=== PATIENT | female | born 1945 | race Caucasian/White ===

== ENCOUNTER → 2018-01-22 | Outpatient (CLI) | payer BC, MEDICARE | LOC: M.RAD 01-16 16:02 | DX: Z12.31 Encounter for screening mammogram for malignant neoplasm of breast (principal); G45.9 Transient cerebral ischemic attack, unspecified; N91.2 Amenorrhea, unspecified; R42 Dizziness and giddiness; Z78.0 Asymptomatic menopausal state ==

== ENCOUNTER → 2020-07-27 | Outpatient (CLI) | payer OTHER | LOC: M.RAD 07-21 12:37 | PROVIDERS: ATTEND Nurse Practitioner Family | DX: Z12.31 Encounter for screening mammogram for malignant neoplasm of breast (principal); N95.1 Menopausal and female climacteric states; K11.1 Hypertrophy of salivary gland; M85.88 Other specified disorders of bone density and structure, other site ==

== ENCOUNTER → 2020-07-31 | Outpatient (CLI) | payer OTHER | LOC: M.CT 13:57 | PROVIDERS: ATTEND Nurse Practitioner Family | DX: J43.9 Emphysema, unspecified (principal); K11.1 Hypertrophy of salivary gland ==